=== PATIENT | female | born 1985 | race Caucasian/White ===

== ENCOUNTER → 2017-09-29 | Outpatient (CLI) | payer MEDICARE ==
[2017-09-29 15:30] VITALS: BP 107/68; PULSE 75; TEMP 98.1; BMI 44.7
--- NOTE | 2017-09-29 15:46 | P.HPBAR ---
Bariatric H&P - History & Physicial H&P Date: 09/29/17 History & Physicial: Visit/CC: inital clinic visit Patient initial contact: Initial weight: Initial weight in pounds: Height: 5 ft 3 in Initial BMI: Last weight: Current weight: 114.623 kg Current weight in pounds: 252.70 Current BMI: 44.7 [place] body weight (based on NIH guidelines): 52.163 kg Excess body weight loss: The patient is a 32 year-old F who presents for Bariatric Assessment. HPI: She has been trying to lose weight using low carb, Adipex, etc. Highest weight of 255 pounds. She is looking into the gastric bypass. She has been looking for the last 2 years. She reports emotional eating and overeating. No stomach cancer. Has family history of diabetes. She reports severe GERD. Her gallbladder is gone. Has low back pain and is on physical therapy. Occasional hip pain. She reports right knee pain. No ankle problems. No DVTs. PLAN: 1. MBSC reviewed 2. Need urine nicotine Past Medical History Past Medical History: Diabetes Mellitus, Hypertension History of Any Multi-Drug Resistant Organisms: None Reported Past Surgical History: Cholecystectomy Additional Past Surgical History / Comment(s): LEEP procedure 2011 Past Anesthesia/Blood Transfusion Reactions: No Reported Reaction Past Psychological History: Bipolar Smoking Status: Current every day smoker Past Alcohol Use History: None Reported Additional Past Alcohol Use History / Comment(s): patient smokes 1/2 pack per day Past Drug Use History: None Reported Surgical - Exam Vital Signs Temp Pulse BP 98.1 F 75 107/68 09/29/17 15:26 09/29/17 15:26 09/29/17 15:26 Bariatric Checklist Checklist: Plan: Checklist: EGD: 1. Hiatal hernia: 2. H. Pylori: HgbA1c: Vitamin D: Smoking: Current every day smoker Primary care physician referral: Psychiatry clearance: Cardiology clearance: Sleep study: Diet journal: VTE risk score: VTE risk level: Rehab needs at discharge:
[2017-09-29 16:51] LABS: HCT 38.6 % (34.0-46.0); MCH 29.8 pg (25.0-35.0); MCHC 33.8 g/dL (31.0-37.0); MCV 88.2 fL (80.0-100.0); Mean Platelet Volume 7.2; Platelet Count 300 k/uL (150-450); RBC 4.37 m/uL (3.80-5.40); RDW 12.7 % (11.5-15.5); WBC 10.6 k/uL (3.8-10.6)
[2017-09-29 17:00] LABS: Albumin 4.3 g/dL (3.5-5.0); Calcium 9.9 mg/dL (8.4-10.2); Potassium 4.6 mmol/L (3.5-5.1); Total Bilirubin 0.3 mg/dL (0.2-1.3); Total Protein 7.2 g/dL (6.3-8.2)
[2017-09-30 00:46] LABS: Iron Saturation 9.49 (12.00-45.00)
[2017-09-30 00:58] LABS: Vitamin D 25 Hydroxy 22.8 ng/mL (30.0-100.0)
[2017-09-30 01:02] LABS: Folate, Serum 21.9 ng/mL
[2017-09-30 02:10] LABS: Hemoglobin A1C 5.5 % (4.0-6.0)
== END | disposition home or self-care (01) ==
LOC: BARWHC3 14:57
PROVIDERS: ATTEND Surgery Plastic and Reconstructive Surgery
DX: E88.81 Metabolic syndrome and other insulin resistance (principal); E66.01 Morbid (severe) obesity due to excess calories; K21.9 Gastro-esophageal reflux disease without esophagitis; M25.561 Pain in right knee; F31.9 Bipolar disorder, unspecified; F17.210 Nicotine dependence, cigarettes, uncomplicated; E44.0 Moderate protein-calorie malnutrition; E55.9 Vitamin D deficiency, unspecified; I11.9 Hypertensive heart disease without heart failure; G47.30 Sleep apnea, unspecified; Z90.49 Acquired absence of other specified parts of digestive tract; Z68.41 Body mass index [BMI] 40.0-44.9, adult
CPT/HCPCS: 84425; 80061; 80053; 82607; 82728; 82746; 83540; 83550; 84443; 85027; 82306; 83036; 93005; 36415; G0463; 99211

== ENCOUNTER 2017-11-21 06:32 | Day surgery (SDC) | payer MEDICARE ==
[2017-11-17 10:51] VITALS: BMI 44.4
--- NOTE | 2017-11-21 05:53 | P.GSHP ---
History of Present Illness H&P Date: 11/21/17 CHIEF COMPLAINT: GERD HISTORY OF PRESENT ILLNESS: The patient is a 32-year-old female who presents reports gastroesophageal reflux disease. Upper endoscopy was offered for further evaluation and management. PAST MEDICAL HISTORY: Please see list. PAST SURGICAL HISTORY: Please see list. MEDICATIONS: Please see list. ALLERGIES: Please see list. SOCIAL HISTORY: No illicit drug use FAMILY HISTORY: No reports of Crohn disease or ulcerative colitis. REVIEW OF ORGAN SYSTEMS: CONSTITUTIONAL: No reports of fevers or chills. GI: Denies any blood in stools or constipation. PHYSICAL EXAM: VITAL SIGNS: Stable GENERAL: Well-developed and pleasant in no acute distress. HEENT: No scleral icterus. Extraocular movements grossly intact. Moist buccal mucosa. NECK: Supple without lymphadenopathy. CHEST: Unlabored respirations. Equal bilateral excursions. CARDIOVASCULAR: Regular rate and rhythm. Distal 2+ pulses. ABDOMEN: Soft, nondistended. MUSCULOSKELETAL: No clubbing, cyanosis, or edema. ASSESSMENT: 1. Gastroesophageal reflux disease PLAN: 1. Recommend proceeding with an upper endoscopy Past Medical History Past Medical History: Asthma, Diabetes Mellitus, GERD/Reflux, Hypertension Additional Past Medical History / Comment(s): HEARTBURN History of Any Multi-Drug Resistant Organisms: None Reported Past Surgical History: Cholecystectomy Additional Past Surgical History / Comment(s): LEEP procedure, Past Anesthesia/Blood Transfusion Reactions: No Reported Reaction Smoking Status: Current every day smoker - Past Family History Mother Family Medical History: No Reported History Medications and Allergies Home Medications Medication Instructions Recorded Confirmed Type DULoxetine HCL [Cymbalta] 30 mg PO DAILY 09/27/17 11/17/17 History Propranolol [Inderal] 20 mg PO TID 09/27/17 11/17/17 History clonazePAM [KlonoPIN] 0.25 mg PO BID 09/27/17 11/17/17 History lamoTRIgine [LaMICtal] 200 mg PO BID 09/27/17 11/17/17 History metFORMIN HCL [Glucophage] 500 mg PO BID 09/27/17 11/17/17 History Albuterol Inhaler [Ventolin Hfa 1 - 2 puff INHALATION RT-Q6H PRN 11/17/17 History Inhaler] Mirtazapine [Remeron] 15 mg PO HS 11/17/17 11/17/17 History Norethindrone [Ortho Micronor] 0.35 mg PO DAILY 11/17/17 11/17/17 History QUEtiapine [SEROquel] 50 mg PO BID 11/17/17 11/17/17 History Allergies Allergy/AdvReac Type Severity Reaction Status Date / Time Sulfa (Sulfonamide Allergy Rash/Hives Verified 11/17/17 10:19 Antibiotics)
[~2017-11-21 06:32] MED LIST: LACTATED RINGERS 1,000 ML IV SCH
[2017-11-21 07:05] VITALS: TEMP 97.9
[2017-11-21] MEDS ORDERED: LACTATED RINGERS 1,000 ML IV ONE (07:16)
[2017-11-21] MEDS ORDERED: LIDOCAINE 1% INJ 10MG/ML (20 ML MDV) ONE (07:42)
[2017-11-21] MEDS ORDERED: PROPOFOL 10 MG/ML 20 ML VIAL IV ONE (07:42)
--- NOTE | 2017-11-21 08:07 | P.PCN ---
Date of Procedure: 11/21/17 Description of Procedure: PREOPERATIVE DIAGNOSIS: Gastroesophageal reflux disease. Morbid obesity. POSTOPERATIVE DIAGNOSIS: Morbid obesity. Gastritis. Gastroesophageal reflux disease. Diaphragmatic hiatal hernia Erosive esophagitis OPERATION: Esophagogastroduodenoscopy with biopsies along antrum and distal esophagus SURGEON: Milka Barroso MD ANESTHESIA: MAC. INDICATIONS: The patient is a 32-year-old female who presents with a history of reflux disease. Benefits and risks of the procedure were described. Informed consent was obtained. DESCRIPTION: The patient was brought into the endoscopy suite and laid in the left lateral decubitus position. An Olympus gastroscope was passed along the posterior oropharynx down to the distal esophagus where the squamocolumnar junction was encountered at 35 cm from the incisors. The stomach was entered and no bile reflux was found. Additional findings are listed below. Biopsies with cold forceps were obtained of the antrum. The first through third portion of the duodenum was examined and unremarkable. Retroflexion of the scope confirmed Hill grade 4 lower esophageal valve. The squamocolumnar junction demonstrated LA grade C erosive esophagitis. The stomach was desufflated. The patient tolerated the procedure well. FINDINGS: Squamocolumnar junction 33 cm from the incisors. Diaphragmatic hiatus at 38 cm. Hiatal hernia, 5 cm Hill grade 4 lower esophageal valve. LA grade C erosive esophagitis. No active duodenitis. Chronic gastritis with recent bleed RECOMMENDATIONS: Upper endoscopy as needed. Plan - Discharge Summary New Discharge Prescriptions: No Action DULoxetine HCL [Cymbalta] 30 mg PO DAILY lamoTRIgine [LaMICtal] 200 mg PO BID metFORMIN HCL [Glucophage] 500 mg PO BID clonazePAM [KlonoPIN] 0.25 mg PO BID Propranolol [Inderal] 20 mg PO TID Mirtazapine [Remeron] 15 mg PO HS QUEtiapine [SEROquel] 50 mg PO BID Norethindrone [Ortho Micronor] 0.35 mg PO DAILY Albuterol Inhaler [Ventolin Hfa Inhaler] 1 - 2 puff INHALATION RT-Q6H PRN PRN Reason: Shortness Of Breath Discharge Medication List DULoxetine HCL [Cymbalta] 30 mg PO DAILY 09/27/17 [History] Propranolol [Inderal] 20 mg PO TID 09/27/17 [History] clonazePAM [KlonoPIN] 0.25 mg PO BID 09/27/17 [History] lamoTRIgine [LaMICtal] 200 mg PO BID 09/27/17 [History] metFORMIN HCL [Glucophage] 500 mg PO BID 09/27/17 [History] Albuterol Inhaler [Ventolin Hfa Inhaler] 1 - 2 puff INHALATION RT-Q6H PRN [History] Mirtazapine [Remeron] 15 mg PO HS 11/17/17 [History] Norethindrone [Ortho Micronor] 0.35 mg PO DAILY 11/17/17 [History] QUEtiapine [SEROquel] 50 mg PO BID 11/17/17 [History]
[2017-11-21 08:19] VITALS: BP 103/63; PULSE 65; RESP 16
[2017-11-21 08:48] LABS: Glucose,Whole Blood 101 mg/dL (75-99)
== END 2017-11-21 08:30 | disposition home or self-care (01) ==
LOC: ORWHC2ENDO 06:32
PROVIDERS: ATTEND Surgery Plastic and Reconstructive Surgery
DX: K29.50 Unspecified chronic gastritis without bleeding (principal); K22.10 Ulcer of esophagus without bleeding; K44.9 Diaphragmatic hernia without obstruction or gangrene; E11.9 Type 2 diabetes mellitus without complications; Z79.84 Long term (current) use of oral hypoglycemic drugs; J45.909 Unspecified asthma, uncomplicated; F17.200 Nicotine dependence, unspecified, uncomplicated; Z79.3 Long term (current) use of hormonal contraceptives; Z79.899 Other long term (current) drug therapy; Z88.2 Allergy status to sulfonamides; E66.01 Morbid (severe) obesity due to excess calories; Z68.41 Body mass index [BMI] 40.0-44.9, adult
CPT/HCPCS: 81025; 88305; 43239; J2001; J2704

== ENCOUNTER → 2018-02-01 | Outpatient (CLI) | payer MEDICARE ==
[2018-02-01 15:14] VITALS: BP 139/74; PULSE 98; RESP 16; TEMP 97.6; BMI 44.6
--- NOTE | 2018-02-01 15:14 | P.PN ---
Subjective Progress Note Date: 02/01/18 HPI: She has very bad acid reflux. She is looking into the gastric bypass. She has reponded well to Omeprazole. She is removing extra sugar from her diet. PLAN: 1. New Omeprazole prescription 2. Education between sleeve and gastric bypass reviewed. 3. Went over consent for gastric bypass. 4. Hiatal hernia surgery on hold as she elected for gastric bypass. 5. All labs reviewed as well.
== END | disposition home or self-care (01) ==
LOC: BARWHC3 13:33
PROVIDERS: ATTEND Surgery Plastic and Reconstructive Surgery
DX: K21.9 Gastro-esophageal reflux disease without esophagitis (principal)
CPT/HCPCS: 99211

== ENCOUNTER → 2018-02-06 | Outpatient (CLI) | payer MEDICARE ==
[2018-02-06 13:46] VITALS: BMI 44.1
== END | disposition home or self-care (01) ==
LOC: BARWHC3 08:35
PROVIDERS: ATTEND Surgery Plastic and Reconstructive Surgery
DX: E66.01 Morbid (severe) obesity due to excess calories (principal); Z68.41 Body mass index [BMI] 40.0-44.9, adult
CPT/HCPCS: 97804

== ENCOUNTER → 2018-03-08 | Outpatient (CLI) | payer MEDICARE ==
[2018-03-08 15:35] VITALS: BP 115/76; PULSE 71; TEMP 97.1; BMI 43.7
--- NOTE | 2018-03-08 16:22 | P.PN ---
Subjective Progress Note Date: 03/08/18 DATE OF SERVICE: 03/08/2018 CHIEF COMPLAINT: Bariatric evaluation. HISTORY OF PRESENT ILLNESS: Michelle Bentley is a 32-year-old female who comes in with sleep apnea, hypertensive heart disease, and diabetes as a result of her morbid obesity. She completed her medical supervised weight loss. She comes in with lifelong morbid obesity. She is looking into the gastric bypass. She has tried premier protein drink and reports fatigue of her protein drink. At height of 5 feet 3 inches, her ideal body weight is 140 pounds. She comes in 246 pounds from 252 pounds, 1 month ago. Her body mass index is reduced from 44.7 to 43.8. She lost 5 pounds from 1 month ago. She is 106 pounds overweight. PAST MEDICAL HISTORY: 1. Morbid obesity due to excess calories 2. Body mass index of 45.3 initial 3. Osteoarthritis of the knees. 4. Osteoarthritis of the hips. 5. Osteoarthritis of the lower back. 6. Obstructive sleep apnea. 7. Hypertensive heart disease. 8. Gastroesophageal reflux disease. 9. Diabetes type 2, [id number] 10. Seizure disorder 11. Depressive disorder 12. Asthma 13. Bipolar disorder PAST SURGICAL HISTORY: 1. Cholecystectomy 2. LEEP HOME MEDICATIONS: 1. Metformin 2. Cymbalta 3. Seroquel 4. Omeprazole 5. control pill 6. Remeron 7. Albuterol inhaler 8. Klonopin 9. Inderal 10. Lamictal ALLERGIES: Sulfa SOCIAL HISTORY: Tobacco use. FAMILY HISTORY: No family history of ulcerative colitis disease or Crohn's disease. Family history of morbid obesity. No lupus in the family. No reports of stomach or esophageal cancer. Family history of diabetes type 2. REVIEW OF ORGAN SYSTEMS: CONSTITUTIONAL: At height of 5 feet 3 inches, her ideal body weight is 140 pounds. She comes in 252 pounds. Her body mass index is 44.7. HEENT: Denies any active troubles with vision or hearing. No troubles with swallowing. ENDOCRINE: No diabetes. No hypothyroidism. CARDIOVASCULAR: No reports of palpitations or heart attacks or chest pain. RESPIRATORY: Has daytime somnolence. Has asthma. GI: Denies any bright red blood per rectum. MUSCULOSKELETAL: Has lower back pain and joint pain. Has osteoarthritis of the knees. NEURO: No headaches. No seizure disorders. PSYCH: Has depression and suicidal ideation. Has bipolar disorder. RHEUMATOLOGIC: No lupus. No rheumatoid arthritis. HEMATOLOGIC: Denies any abnormal bleeding or bruising. No personal history of DVTs. SKIN: No rash. No skin cancer. PHYSICAL EXAM: VITAL SIGNS: Height 5 foot 3 inches, weight 246 pounds. BMI 43.8 Vital Signs Temp 97.1 F L 03/08/18 15:23 Pulse 71 03/08/18 15:23 Resp BP 115/76 03/08/18 15:23 Pulse Ox GENERAL: Well-developed in no acute distress. HEENT: No scleral icterus. Extraocular movements grossly intact. Hears conversational speech. No nasal drainage. NECK: Supple without lymphadenopathy. CHEST: Nonlabored respirations with equal bilateral excursions. CARDIOVASCULAR: Regular rate and regular rhythm. Distal 2+ pulses. ABDOMEN: Obese, soft, nondistended. MUSCULOSKELETAL: No clubbing, cyanosis or edema. Gross strength 5/5 distal lower extremities. NEURO: No focal or lateralizing signs. Cranial nerves 2 through 12 grossly within normal limits. PSYCH: Appropriate affect. Alert and oriented to person, place and time. SKIN: Good skin turgor. Well perfused. ASSESSMENT: 1. Morbid obesity. 2. Body mass index of 44.7 initial to 43.8 3. Osteoarthritis of the knees. 4. Osteoarthritis of the hips. 5. Osteoarthritis of the lower back. 6. Obstructive sleep apnea. 7. Hypertensive heart disease. 8. Gastroesophageal reflux disease. 9. Diabetes type 2, [id number] 10. Seizure disorder 11. Depressive disorder 12. Asthma 13. Bipolar disorder 14. Vitamin D deficiency 15. Iron deficiency anemia 16. Hypertriglyceridemia 17. Hypercholesterolemia 18. Hiatal hernia PLAN: 1. Bariatric options between a sleeve, band and a Chela-en-Y gastric bypass were reviewed in detail. The patient elected for a gastric bypass. Robotic assisted approach described. 2. The [place] [facility] Data was also reviewed with benefits and risks as described. 3. An 8 page second-generation bariatric consent form was reviewed in detail including potential of bleeding, infection, leaks, adequate weight loss, nutritional deficiencies which the patient demonstrated understanding of the risks. 4. A 2 week high-protein low caloric 800 kcal diet described to address hepatomegaly. 5. Preoperative labs including complete metabolic panel and CBC with type and screen recommended. 6. DVT prophylaxis per [place] [facility]. 7. Antibiotic prophylaxis. 8. Inpatient hospitalization anticipated for more than 2 nights. 9. All questions and concerns were addressed with the patient. 10. She has mood disorder and medication adjustment postprocedure was addressed. She reports that her mental health specialist did not want to adjust her medications. May need in-patient psychology assessment for any issues. 11. She is intermediate risk for madeline-operative complications due to her multiple co-morbidities. Objective - Vital Signs Vital signs: Vital Signs Temp 97.1 F L 03/08/18 15:23 Pulse 71 03/08/18 15:23 Resp BP 115/76 03/08/18 15:23 Pulse Ox Intake & Output 03/07/18 03/08/18 03/08/18 18:59 06:59 18:59 Weight 112.037 kg - Labs CBC & Chem 7: 03/08/18 17:03 03/08/18 17:03
== END | disposition home or self-care (01) ==
LOC: BARWHC3 14:44
PROVIDERS: ATTEND Surgery Plastic and Reconstructive Surgery
DX: E66.01 Morbid (severe) obesity due to excess calories (principal); M17.0 Bilateral primary osteoarthritis of knee; M16.0 Bilateral primary osteoarthritis of hip; M47.816 Spondylosis without myelopathy or radiculopathy, lumbar region; G47.33 Obstructive sleep apnea (adult) (pediatric); I11.9 Hypertensive heart disease without heart failure; K21.9 Gastro-esophageal reflux disease without esophagitis; E11.9 Type 2 diabetes mellitus without complications; G40.909 Epilepsy, unspecified, not intractable, without status epilepticus; J45.909 Unspecified asthma, uncomplicated; F31.9 Bipolar disorder, unspecified; E55.9 Vitamin D deficiency, unspecified; D50.9 Iron deficiency anemia, unspecified; E78.1 Pure hyperglyceridemia; E78.00 Pure hypercholesterolemia, unspecified; K44.9 Diaphragmatic hernia without obstruction or gangrene; Z68.41 Body mass index [BMI] 40.0-44.9, adult; Z72.0 Tobacco use; Z90.49 Acquired absence of other specified parts of digestive tract; Z79.84 Long term (current) use of oral hypoglycemic drugs; Z79.899 Other long term (current) drug therapy; Z88.2 Allergy status to sulfonamides
CPT/HCPCS: 36415; 80053; 85025; 86850; 86900; 86901; 93005; 99211

== ENCOUNTER → 2018-03-08 | Outpatient (CLI) | payer MEDICARE ==
[~2018-03-08] MED LIST changes: +ACETAMINOPHEN IV (For NPO) 1,000 MG in EMPTY BAG 1 BAG IVPB ONE; +CHLORHEXIDINE GLUCONATE 15 ML CUP MUCOUS MEM ONE; +ENOXAPARIN 40 MG/0.4 ML SYRINGE SQ STA; -LACTATED RINGERS 1,000 ML IV SCH; +PANTOPRAZOLE 40 MG/10 ML VIAL IV STA; +SCOPOLAMINE 1.5MG/72HR PATCH TRANSDERM STA
--- NOTE | 2018-03-13 07:00 | P.GSHP ---
History of Present Illness H&P Date: 03/13/18 DATE OF SERVICE: 03/13/2018 REASON FOR CONSULTATION: Morbid obesity HISTORY OF PRESENT ILLNESS: Michelle Bentley is a 32-year-old female who comes in with long-standing morbid obesity. She has been trying to lose weight using low carb, Adipex, etc. Her highest weight is 255 pounds. She is looking into the gastric bypass. She has been looking for the last 2 years. She reports emotional eating and overeating. No reports of stomach cancer. She has family history of diabetes. She reports severe gastroesophageal reflux disease. Her gallbladder is gone. She has low back pain and is on physical therapy. She reports occasional hip pain. She reports right knee pain. No ankle problems. No reports of DVTs. PAST MEDICAL HISTORY: 1. Morbid obesity. 2. Body mass index of 45.3 initial 3. Osteoarthritis of the knees. 4. Osteoarthritis of the hips. 5. Osteoarthritis of the lower back. 6. Obstructive sleep apnea. 7. Hypertensive heart disease. 8. Gastroesophageal reflux disease. 9. Diabetes type 2, [id number] 10. Seizure disorder 11. Depressive disorder 12. Asthma 13. Bipolar disorder PAST SURGICAL HISTORY: 1. Cholecystectomy 2. LEEP HOME MEDICATIONS: 1. Metformin 2. Cymbalta 3. Seroquel 4. Omeprazole 5. control pill 6. Remeron 7. Albuterol inhaler 8. Klonopin 9. Inderal 10. Lamictal ALLERGIES: Sulfa SOCIAL HISTORY: Tobacco use. FAMILY HISTORY: No family history of ulcerative colitis disease or Crohn's disease. Family history of morbid obesity. No lupus in the family. No reports of stomach or esophageal cancer. Family history of diabetes type 2. REVIEW OF ORGAN SYSTEMS: CONSTITUTIONAL: At height of 5 feet 3 inches, her ideal body weight is 140 pounds. She comes in 252 pounds. Her body mass index is 44.8. She is 112 pounds overweight. HEENT: Denies any active troubles with vision or hearing. No troubles with swallowing. ENDOCRINE: No diabetes. No hypothyroidism. CARDIOVASCULAR: No reports of palpitations or heart attacks or chest pain. RESPIRATORY: Has daytime somnolence. No asthma. GI: Denies any bright red blood per rectum. MUSCULOSKELETAL: Has lower back pain and joint pain. Has osteoarthritis of the knees. NEURO: No headaches. No seizure disorders. PSYCH: No depression or suicidal ideation. RHEUMATOLOGIC: No lupus. No rheumatoid arthritis. HEMATOLOGIC: Denies any abnormal bleeding or bruising. No personal history of DVTs. SKIN: No rash. No skin cancer. PHYSICAL EXAM: VITAL SIGNS: Height 5 foot 3 inches, weight 252 pounds. BMI 44.8 GENERAL: Well-developed in no acute distress. HEENT: No scleral icterus. Extraocular movements grossly intact. Hears conversational speech. No nasal drainage. NECK: Supple without lymphadenopathy. CHEST: Nonlabored respirations with equal bilateral excursions. CARDIOVASCULAR: Regular rate and regular rhythm. Distal 2+ pulses. ABDOMEN: Obese, soft, nondistended. MUSCULOSKELETAL: No clubbing, cyanosis or edema. Gross strength 5/5 distal lower extremities. NEURO: No focal or lateralizing signs. Cranial nerves 2 through 12 grossly within normal limits. PSYCH: Appropriate affect. Alert and oriented to person, place and time. SKIN: Good skin turgor. Well perfused. ASSESSMENT: 1. Morbid obesity. 2. Body mass index of 45.3 initial 3. Osteoarthritis of the knees. 4. Osteoarthritis of the hips. 5. Osteoarthritis of the lower back. 6. Obstructive sleep apnea. 7. Hypertensive heart disease. 8. Gastroesophageal reflux disease. 9. Diabetes type 2, [id number] 10. Seizure disorder 11. Depressive disorder 12. Asthma 13. Bipolar disorder 14. Vitamin D deficiency 15. Iron deficiency anemia 16. Hypertriglyceridemia 17. Hypercholesterolemia PLAN: 1. Surgical options including a band, gastric bypass, sleeve gastrectomy were described in detail. Alternatives such as gastric balloon including duodenal switch were described. She is looking into the gastric bypass. 2. The [place] [facility] Data was also reviewed with benefits and risks as described. 3. An 8 page second-generation bariatric consent form was reviewed in detail including potential of bleeding, infection, leaks, adequate weight loss, nutritional deficiencies which he demonstrated understanding of the risks. 4. A 2 week high-protein low caloric 800 kcal diet described to address hepatomegaly. 5. Preoperative labs including complete metabolic panel and CBC with type and screen recommended. 6. DVT prophylaxis per [place] [facility]. 7. Antibiotic prophylaxis. 8. Inpatient hospitalization anticipated for more than 2 nights. 9. All questions and concerns were addressed with the patient. 19. Recommended dietary classes. Past Medical History Past Medical History: Asthma, Diabetes Mellitus, GERD/Reflux, Hypertension Additional Past Medical History / Comment(s): HEARTBURN History of Any Multi-Drug Resistant Organisms: None Reported Past Surgical History: Cholecystectomy Additional Past Surgical History / Comment(s): LEEP procedure, EGD Past Anesthesia/Blood Transfusion Reactions: No Reported Reaction Past Psychological History: Bipolar Smoking Status: Former smoker Past Alcohol Use History: None Reported Additional Past Alcohol Use History / Comment(s): STARTED SMOKING AT AGE 13 QUIT ON AND OFF, SMOKED 1/2PPD, quit 02-13-18 Past Drug Use History: Marijuana Additional Drug Use History / Comment(s): occasional use - Past Family History Mother Family Medical History: No Reported History Medications and Allergies Home Medications Medication Instructions Recorded Confirmed Type Propranolol [Inderal] 20 mg PO TID 09/27/17 03/08/18 History clonazePAM [KlonoPIN] 0.25 mg PO BID 09/27/17 03/08/18 History lamoTRIgine [LaMICtal] 200 mg PO BID 09/27/17 03/08/18 History metFORMIN HCL [Glucophage] 500 mg PO BID 09/27/17 03/08/18 History Albuterol Inhaler [Ventolin Hfa 1 - 2 puff INHALATION RT-Q6H PRN 11/17/17 History Inhaler] Mirtazapine [Remeron] 15 mg PO HS 11/17/17 03/08/18 History Norethindrone [Ortho Micronor] 0.35 mg PO DAILY 11/17/17 03/08/18 History QUEtiapine [SEROquel] 50 mg PO BID 11/17/17 03/08/18 History Omeprazole 40 mg PO DAILY #30 capsule. 11/21/17 03/08/18 Rx buPROPion HCL [Wellbutrin XL] 300 mg PO DAILY 02/02/18 03/08/18 History Allergies Allergy/AdvReac Type Severity Reaction Status Date / Time Sulfa (Sulfonamide Allergy Rash/Hives Verified 03/09/18 08:25 Antibiotics)
== END ==
LOC: LABPAT 16:37
PROVIDERS: ATTEND Surgery Plastic and Reconstructive Surgery
DX: Z01.818 Encounter for other preprocedural examination (principal); Z01.812 Encounter for preprocedural laboratory examination
CPT/HCPCS: 36415; 80053; 85025; 86850; 86900; 86901; 93005

== ENCOUNTER 2018-03-13 07:30 | Inpatient (IN) | payer MEDICARE ==
[2018-03-08 18:22] LABS: Basophils % (A) 0 %; Eosinophils # (A) 0.1 k/uL (0-0.7); Eosinophils % (A) 1 %; HCT 40.5 % (34.0-46.0); HGB 13.4 gm/dL (11.4-16.0); Lymphocytes # (A) 2.1 k/uL (1.0-4.8); Lymphocytes % (A) 21 %; MCH 29.8 pg (25.0-35.0); MCHC 33.1 g/dL (31.0-37.0); Mean Platelet Volume 7.4; Monocytes # (A) 0.5 k/uL (0-1.0); Monocytes % (A) 5 %; Neutrophils # (A) 7.3 k/uL (1.3-7.7); Neutrophils % (A) 72 %; Platelet Count 319 k/uL (150-450); RDW 13.3 % (11.5-15.5); WBC 10.2 k/uL (3.8-10.6)
[2018-03-09 04:18] LABS: Albumin 4.5 g/dL (3.80-4.90); Albumin/Globulin Ratio 2.14 (1.20-2.10); Anion Gap 7.3 mmol/L (4.00-12.00); Calcium 9.8 mg/dL (8.7-10.3); Carbon Dioxide 26.7 mmol/L (21.6-31.8); Globulin 2.1 g/dL (1.6-3.3); Potassium 4.5 mmol/L (3.5-5.5); Total Bilirubin 0.2 mg/dL (0.3-1.2); Total Protein 6.6 g/dL (6.2-8.2)
--- NOTE | 2018-03-13 07:03 | P.GSHP ---
History of Present Illness H&P Date: 03/13/18 DATE OF SERVICE: 03/13/2018 REASON FOR CONSULTATION: Morbid obesity HISTORY OF PRESENT ILLNESS: Michelle Bentley is a 32-year-old female who comes in with long-standing morbid obesity. She has been trying to lose weight using low carb, Adipex, etc. Her highest weight is 255 pounds. She is looking into the gastric bypass. She has been looking for the last 2 years. She reports emotional eating and overeating. No reports of stomach cancer. She has family history of diabetes. She reports severe gastroesophageal reflux disease. Her gallbladder is gone. She has low back pain and is on physical therapy. She reports occasional hip pain. She reports right knee pain. No ankle problems. No reports of DVTs. PAST MEDICAL HISTORY: 1. Morbid obesity. 2. Body mass index of 45.3 initial 3. Osteoarthritis of the knees. 4. Osteoarthritis of the hips. 5. Osteoarthritis of the lower back. 6. Obstructive sleep apnea. 7. Hypertensive heart disease. 8. Gastroesophageal reflux disease. 9. Diabetes type 2, [id number] 10. Seizure disorder 11. Depressive disorder 12. Asthma 13. Bipolar disorder PAST SURGICAL HISTORY: 1. Cholecystectomy 2. LEEP HOME MEDICATIONS: 1. Metformin 2. Cymbalta 3. Seroquel 4. Omeprazole 5. control pill 6. Remeron 7. Albuterol inhaler 8. Klonopin 9. Inderal 10. Lamictal ALLERGIES: Sulfa SOCIAL HISTORY: Tobacco use. FAMILY HISTORY: No family history of ulcerative colitis disease or Crohn's disease. Family history of morbid obesity. No lupus in the family. No reports of stomach or esophageal cancer. Family history of diabetes type 2. REVIEW OF ORGAN SYSTEMS: CONSTITUTIONAL: At height of 5 feet 3 inches, her ideal body weight is 140 pounds. She comes in 252 pounds. Her body mass index is 44.8. She is 112 pounds overweight. HEENT: Denies any active troubles with vision or hearing. No troubles with swallowing. ENDOCRINE: No diabetes. No hypothyroidism. CARDIOVASCULAR: No reports of palpitations or heart attacks or chest pain. RESPIRATORY: Has daytime somnolence. No asthma. GI: Denies any bright red blood per rectum. MUSCULOSKELETAL: Has lower back pain and joint pain. Has osteoarthritis of the knees. NEURO: No headaches. No seizure disorders. PSYCH: No depression or suicidal ideation. RHEUMATOLOGIC: No lupus. No rheumatoid arthritis. HEMATOLOGIC: Denies any abnormal bleeding or bruising. No personal history of DVTs. SKIN: No rash. No skin cancer. PHYSICAL EXAM: VITAL SIGNS: Height 5 foot 3 inches, weight 252 pounds. BMI 44.8 GENERAL: Well-developed in no acute distress. HEENT: No scleral icterus. Extraocular movements grossly intact. Hears conversational speech. No nasal drainage. NECK: Supple without lymphadenopathy. CHEST: Nonlabored respirations with equal bilateral excursions. CARDIOVASCULAR: Regular rate and regular rhythm. Distal 2+ pulses. ABDOMEN: Obese, soft, nondistended. MUSCULOSKELETAL: No clubbing, cyanosis or edema. Gross strength 5/5 distal lower extremities. NEURO: No focal or lateralizing signs. Cranial nerves 2 through 12 grossly within normal limits. PSYCH: Appropriate affect. Alert and oriented to person, place and time. SKIN: Good skin turgor. Well perfused. ASSESSMENT: 1. Morbid obesity. 2. Body mass index of 45.3 initial 3. Osteoarthritis of the knees. 4. Osteoarthritis of the hips. 5. Osteoarthritis of the lower back. 6. Obstructive sleep apnea. 7. Hypertensive heart disease. 8. Gastroesophageal reflux disease. 9. Diabetes type 2, [id number]-hqjbyfkoy 10. Seizure disorder 11. Depressive disorder 12. Asthma 13. Bipolar disorder 14. Vitamin D deficiency 15. Iron deficiency anemia 16. Hypertriglyceridemia 17. Hypercholesterolemia PLAN: 1. Surgical options including a band, gastric bypass, sleeve gastrectomy were described in detail. Alternatives such as gastric balloon including duodenal switch were described. She is looking into the gastric bypass. 2. The [place] [facility] Data was also reviewed with benefits and risks as described. 3. An 8 page second-generation bariatric consent form was reviewed in detail including potential of bleeding, infection, leaks, adequate weight loss, nutritional deficiencies which he demonstrated understanding of the risks. 4. A 2 week high-protein low caloric 800 kcal diet described to address hepatomegaly. 5. Preoperative labs including complete metabolic panel and CBC with type and screen recommended. 6. DVT prophylaxis per [place] [facility]. 7. Antibiotic prophylaxis. 8. Inpatient hospitalization anticipated for more than 2 nights. 9. All questions and concerns were addressed with the patient. 19. Recommended dietary classes. Past Medical History Past Medical History: Asthma, Diabetes Mellitus, GERD/Reflux, Hypertension Additional Past Medical History / Comment(s): HEARTBURN History of Any Multi-Drug Resistant Organisms: None Reported Past Surgical History: Cholecystectomy Additional Past Surgical History / Comment(s): LEEP procedure, EGD Past Anesthesia/Blood Transfusion Reactions: No Reported Reaction Smoking Status: Former smoker - Past Family History Mother Family Medical History: No Reported History Medications and Allergies Home Medications Medication Instructions Recorded Confirmed Type RX: Propranolol [Inderal] 20 mg PO TID 09/27/17 03/08/18 History RX: metFORMIN HCL [Glucophage] 500 mg PO BID 09/27/17 03/08/18 History clonazePAM [KlonoPIN] 0.25 mg PO BID 09/27/17 03/08/18 History lamoTRIgine [LaMICtal] 200 mg PO BID 09/27/17 03/08/18 History Albuterol Inhaler [Ventolin Hfa 1 - 2 puff INHALATION RT-Q6H PRN 11/17/17 History Inhaler] Mirtazapine [Remeron] 15 mg PO HS 11/17/17 03/08/18 History Norethindrone [Ortho Micronor] 0.35 mg PO DAILY 11/17/17 03/08/18 History QUEtiapine [SEROquel] 50 mg PO BID 11/17/17 03/08/18 History RX: Omeprazole 40 mg PO DAILY #30 capsule. 11/21/17 03/08/18 Rx buPROPion HCL [Wellbutrin XL] 300 mg PO DAILY 02/02/18 03/08/18 History Allergies Allergy/AdvReac Type Severity Reaction Status Date / Time Sulfa (Sulfonamide Allergy Rash/Hives Verified 03/09/18 08:25 Antibiotics) Results - Labs 03/08/18 17:03 03/08/18 17:03
[~2018-03-13 07:30] MED LIST changes: +DEXAMETHASONE SOD PHOSPHATE 10 MG/ML 1 ML VIAL IV ONE; +MIDAZOLAM (PF) 2 MG/2 ML VIAL IV PRN; +ONDANSETRON 4 MG/2 ML VIAL IVP ONE; +SCOPOLAMINE 1.5MG/72HR PATCH TRANSDERM ONE; +ceFAZolin IN SWFI 2 GM/20 ML SYRINGE IVP ONE
[2018-03-13] MEDS ORDERED: LACTATED RINGERS 1,000 ML IV ONE ×2 (08:39→13:46)
[2018-03-13 08:47] LABS: Glucose,Whole Blood 92 mg/dL (75-99)
[2018-03-13] MEDS ORDERED: LIDOCAINE 1% 20 ML VIAL (10MG/ML) FOR IV START INTRADERMA ONE (08:57)
[2018-03-13] MEDS ORDERED: fentaNYL (PF) 50 MCG/ML 2 ML AMP ONE (11:37)
[2018-03-13] MEDS ORDERED: PROPOFOL 10 MG/ML 20 ML VIAL IV ONE (11:37)
[2018-03-13] MEDS ORDERED: MIDAZOLAM 2 MG/2 ML VIAL ONE (11:37)
[2018-03-13] MEDS ORDERED: NEOSTIGMINE 1 MG/ML 10 ML VIAL ONE (11:37)
[2018-03-13] MEDS ORDERED: LIDOCAINE 1% INJ 10MG/ML (20 ML MDV) ONE (11:37)
[2018-03-13] MEDS ORDERED: GLYCOPYRROLATE 0.2 MG/ML 2 ML VIAL ONE (11:37)
[2018-03-13] MEDS ORDERED: SUCCINYLCHOLINE CHLORIDE 100 MG/5 ML SYR IV ONE (11:37)
[2018-03-13] MEDS ORDERED: ROCURONIUM BROMIDE 10 MG/ML 10 ML VIAL IV ONE (11:37)
[2018-03-13] MEDS ORDERED: IV FLUID CONTINUATION 800 ML IV ONE (11:41)
[2018-03-13] MEDS ORDERED: BUPIVACAIN-EPI 0.25%-1:200,000 30 ML VIAL SQ ONE ×2 (12:06→12:15)
[2018-03-13] MEDS ORDERED: HYDROmorphone 0.5 MG/0.5 ML SYRINGE IVP PRN (14:25)
[2018-03-13] MEDS ORDERED: NALOXONE 0.4 MG/ML 1 ML VIAL IV PRN (14:25)
--- NOTE | 2018-03-13 14:43 | P.OP ---
Date of Procedure: 03/13/18 Description of Procedure: SURGEON: HARRIS GIRON MD PREOPERATIVE DIAGNOSES: 1. Morbid obesity. 2. Body mass index of 45.3 initial 3. Osteoarthritis of the knees. 4. Osteoarthritis of the hips. 5. Osteoarthritis of the lower back. 6. Obstructive sleep apnea. 7. Hypertensive heart disease. 8. Gastroesophageal reflux disease. 9. Diabetes type 2, [id number]-[id number] 10. Seizure disorder 11. Depressive disorder 12. Asthma 13. Bipolar disorder 14. Vitamin D deficiency 15. Iron deficiency anemia 16. Hypertriglyceridemia 17. Hypercholesterolemia POSTOPERATIVE DIAGNOSES: 1. Morbid obesity. 2. Body mass index of 45.3 initial 3. Osteoarthritis of the knees. 4. Osteoarthritis of the hips. 5. Osteoarthritis of the lower back. 6. Obstructive sleep apnea. 7. Hypertensive heart disease. 8. Gastroesophageal reflux disease. 9. Diabetes type 2, [id number]-epwlrdnsa 10. Seizure disorder 11. Depressive disorder 12. Asthma 13. Bipolar disorder 14. Vitamin D deficiency 15. Iron deficiency anemia 16. Hypertriglyceridemia 17. Hypercholesterolemia OPERATION: 1. Robotic assisted da Ginger Xi laparoscopic Finesse-en-Y gastric bypass, 100 cm antecolic antegastric Finesse limb, with 25 mm EEA. 2. Intraoperative esophagogastrojejunoscopy. ANESTHESIA: GETA and local ESTIMATED BLOOD LOSS: 10 mL SPECIMENS REMOVED: None. COMPLICATIONS: NONE. INDICATIONS: Michelle Bentley is a 32-year-old female who comes in with long- standing morbid obesity. She has been trying to lose weight using low carb, Adipex, etc. Her highest weight is 255 pounds. She is looking into the gastric bypass. At height of 5 feet 3 inches, her ideal body weight is 140 pounds. Her body mass index was 45.1. Today she comes in 240 pounds. A second- generation bariatric consent form was described in detail including the possibility of protein malnutrition, leaks, gastrojejunal stricture, venous thrombosis, need for further surgery for which she demonstrated understanding. Benefits and risks of the procedure were described at length. Informed consent was obtained. DESCRIPTION: The patient was brought into the operating room theater. She was placed supine. She had received Lovenox subcutaneously for DVT prophylaxis. Additionally she Peridex oral solution as an oral decontaminant was placed per anesthesia. After general induction, the abdomen was prepped and draped in standard sterile fashion. Ioban draping was placed along the abdomen. A robotic da Ginger Xi system was prepped and primed. The xiphoid to umbilicus was measured of 16 cm. Incisions were proposed at 15 cm from the xiphoid. Proposed port sites were marked with indelible marker along the anterior axillary line bilaterally, mid clavicular line bilaterally with each port marked 10 cm from each other. The robotic stapler port was marked for the right midclavicular line including along the left midclavicular line. A 5 mm 0 degrees laparoscopic trocar entry was performed along the left upper quadrant. The abdomen was insufflated to 15 mmHg pressure, which she tolerated well. Diagnostic laparoscopy demonstrated no injury to bowel, viscera, or mesentery. The liver was smooth and unremarkable. An 8 mm camera port was placed left lateral to the umbilicus at the epigastrium , 15 cm distal to the xiphoid. Next, 12-mm robot stapler port was placed along the right mid abdomen. An 12 mm port was exchanged along the left upper quadrant. An 8 mm port was placed on the left lateral abdominal wall under direct visualization Please note that the ports were placed 18 to 20 cm away from the target anatomy of the stomach. Care was taken to check that each robotic arm was safely away from collision with the bed or the patient. At the epigastrium, a medium sized Amie liver retractor was placed under direct visualization with the [employer] Service Technician placed under the right shoulder of the patient. The patient was repositioned in reverse Trendelenburg position at 14-degrees after lowering the bed. The robot was docked over the patient. Using grasper for arm 3, a grasper for arm 1, including vessel sealer for arm 4 , the robotic system was docked and primed as described. Instruments were interchanged by the medical office receptionist assistant including endoscissors, the needle route relief driver, and stapler. I had sat at the console. Next, the transverse mesocolon was reflected into the upper abdomen after dividing the mesentery and preparing for the jejunojejunostomy portion of the case. The ligament of Treitz was identified and measured 60 cm antegrade and marked using 3-0 Silk. The jejunum was divided at the 60 cm point using 45-mm white loads above the suture measurement. The biliopancreatic limb was held in place. The Finesse limb was measured 100 cm in an antegrade fashion to avoid tension along the proposed gastrojejunal anastomosis. At 100 cm along the anti-mesenteric border of the Finesse limb, a jejunojejunostomy was proposed whereby enterotomies were created along the biliopancreatic limb including the Finesse limb using a Bovie cautery. A stay suture of 3-0 Slik was placed to align and create the anastomosis. The enterotomies along the anti-mesenteric borders were created followed by unidirectional fire from the patient's right side using 2 - 45 mm white load Smart technology robotic stapler. The jejunojejunostomy was found to be hemostatic. The enterotomy was closed after horizontal mattress stitch of 3-0 silk used to elevate the enterotomy followed by closure with the robotic stapler blue load. The jejunal limb was temporarily tacked along the left upper quadrant. Attention was now brought to the creation of the gastrojejunostomy. Along the lesser curvature of the stomach between the second and third veins, dissection was made along the retrogastric space to allow first firing of the robotic staple. Blue loads of 45 mm staplers were used to divide the stomach to create the gastric pouch. The patient was then prepared for placement of a Orvil. The patient was Mallampati 1. A 25-mm Orvil was selected for placement by the nurse tub tender. The Orvil tubing was placed anterior to the staple line of the gastric pouch and brought out through the left inferior lateral port. I re-scrubbed into the case. The robotic arms were temporarily undocked. The Orvil was then carefully and successfully navigated with the help of the nurse tub tender into the gastric pouch. The sutures were identified and divided. The tubing was from the 25 mm anvil. As the Orvil had been placed, the blind jejunal limb was brought proximally into the upper abdomen. No torsion was found upon the Finesse limb. No tension was identified as the limb was brought along the upper abdomen. The blind jejunal limb was previously opened using endo -scissors with cautery. The 25-mm EEA stapler was brought through the left anterior lateral port site from the left side. The EEA stapler was brought through the open jejunal limb and its needle was deployed at the antimesenteric border where the anvil were mated for approximately 1 minute upon firing. The stapler was removed after irrigating the shaft of the instrument with warm normal saline. Donuts were found to be intact and on both sides. The da Ginger Xi robot arms were then re-docked. I sat at the console. The open jejunal limb defect was closed using 45 mm white loads after releasing any tension from the blind jejunal limb. Care was taken to avoid any long blind limb to avoid candycane syndrome. Reinforcement sutures were placed along the gastrojejunal anastomosis and placed along the 9:00 and 3 o'clock position using 3-0 Vicryl. The Neil and jejunojejunostomy mesenteric defects were obliterated by her intra-abdominal fat. I then went to the head of the bed to perform the esophagogastrojejunoscopy and a leak test. An Olympus gastroscope was passed along the posterior oropharynx which was unremarkable for any injury to the vocal cords. The scope was passed down to the proximal portion of the pouch, whereby no active bleeding was encountered. Excellent visualization of the gastrojejunostomy anastomosis, including the Finesse limb was encountered with endoscopic image obtained. The anastomosis was found to be patent. The gastrointestinal tract was desufflated. No evidence of intraoperative leak was encountered as the gastric pouch and anastomosis were submerged under normal saline solution. The robot was then undocked. I then went back to the bedside of the patient, whereby with coordinated effort of the medical office receptionist assistant, irrigation was aspirated from the upper abdominal cavity. Tisseel was placed circumferentially over the anastomosis of the gastrojejunostomy. The fascial defect of the EEA stapler was closed using Alex Tapia and 0 Vicryl. All instruments and pneumoperitoneum were evacuated from the abdominal cavity. The port correlating with the EEA stapler device was cleansed with normal saline solution and hydrogen peroxide. The rest of incisions were reapproximated using 4-0 Monocryl in an interrupted subcuticular fashion. Local anesthetic was infiltrated along the skin for postop analgesia. Liquid glue was applied to the skin. OptiFoam dressing was placed along the EEA stapler site. At the end of the procedure, needle, sponge and instrument count had been verified correct by the nursing surgical services director. He had tolerated the procedure well and was extubated and taken to the postanesthesia unit in stable condition. Intraoperative findings were described to the patient's family who were very pleased with the level of care. Total console time 80 minutes Operative Findings: 1. Biliopancreatic limb 60 cm 2. Bypass performed using 100 cm finesse limb secondary to avoid increased tension at 150 cm. 3. Chavez defect and jejunojejunostomy defect obliterated by moderate intra- abdominal fat. 4. Leak test negative with gastrojejunal anastomosis patent and hemostatic. 5. Reinforcement sutures were placed along the gastrojejunal anastomosis 6. No fatty liver disease with hepatomegaly
[2018-03-13] MEDS: HYDROmorphone 0.5 MG/0.5 ML SYRINGE IVP PRN ×2 (14:49→14:59)
[2018-03-13 15:07] LABS: Glucose,Whole Blood 139 mg/dL (75-99)
[2018-03-13] MEDS ORDERED: ACETAMINOPHEN IV (For NPO) 1,000 MG in EMPTY BAG 1 BAG IVPB ONE (16:00)
[2018-03-13] MEDS: ONDANSETRON 4 MG/2 ML VIAL IVP SCH ×2 (16:37→23:56)
[2018-03-13 16:43] LABS: Glucose,Whole Blood 133 mg/dL (75-99)
[2018-03-13] MEDS: ALBUTEROL NEBULIZED 2.5 MG/3 ML INHALATION SCH ×2 (16:45→20:43)
[2018-03-13] MEDS: LACTATED RINGERS 1,000 ML IV SCH (17:07)
[2018-03-13 17:18] VITALS: BMI 42.5
[2018-03-13] MEDS: HYOSCYAMINE ELIXIR 250 MCG/10 ML BTL PO SCH ×2 (17:32→23:57)
[2018-03-13] MEDS: 0.9% NACL WITH KCL 20 MEQ/L 1,000 ML IV SCH ×2 (17:32→23:56)
[2018-03-13] MEDS: SIMETHICONE 40 MG/0.6 ML DROPS 2,000 MG/30 ML BOTTLE PO SCH ×2 (17:35→23:56)
[2018-03-13] MEDS: PROPRANOLOL 20 MG TAB PO SCH ×2 (17:35→20:51)
[2018-03-13] MEDS: AMPICILLIN-SULBACTAM 3 GM in SODIUM CHLORIDE 0.9% 100 ML IVPB SCH ×2 (17:49→23:56)
[2018-03-13] MEDS ORDERED: HYOSCYAMINE ORAL DROPS 1.875 MG/15 ML BOTTLE PO SCH (18:00)
[2018-03-13] MEDS: HYDROmorphone 1 MG/ML 1 ML SYRINGE IVP PRN ×2 (18:53→22:01)
[2018-03-13 19:51] LABS: Glucose,Whole Blood 97 mg/dL (75-99)
[2018-03-13] MEDS: lamoTRIgine 100 MG TAB PO SCH (20:54)
[2018-03-13] MEDS: HYDROcodone/APAP 15 ML SOLUTION PO PRN (23:58)
[2018-03-14] MEDS: 0.9% NACL WITH KCL 20 MEQ/L 1,000 ML IV SCH ×2 (04:26→05:39)
[2018-03-14] MEDS: HYOSCYAMINE ELIXIR 250 MCG/10 ML BTL PO SCH ×2 (05:36→11:30)
[2018-03-14] MEDS: ONDANSETRON 4 MG/2 ML VIAL IVP SCH ×2 (05:36→11:30)
[2018-03-14] MEDS: SIMETHICONE 40 MG/0.6 ML DROPS 2,000 MG/30 ML BOTTLE PO SCH ×2 (05:37→11:30)
[2018-03-14] MEDS: HYDROcodone/APAP 15 ML SOLUTION PO PRN ×2 (05:37→12:16)
[2018-03-14 06:57] LABS: Glucose,Whole Blood 115 mg/dL (75-99)
[2018-03-14] MEDS ORDERED: 1: MVI, ADULT NO.4 WITH VIT K 10 ML, THIAMINE 100 MG, FOLIC ACID 1 MG, POTASSIUM CHLORID IV SCH ×6 (08:00)
[2018-03-14] MEDS: LACTATED RINGERS 1,000 ML IV SCH (08:03)
[2018-03-14] MEDS: ALBUTEROL NEBULIZED 2.5 MG/3 ML INHALATION SCH ×2 (08:36→11:46)
[2018-03-14] MEDS ORDERED: ENOXAPARIN 40 MG/0.4 ML SYRINGE SQ SCH (09:00)
[2018-03-14] MEDS ORDERED: PANTOPRAZOLE 40 MG/10 ML VIAL IV SCH (09:00)
[2018-03-14 09:02] LABS: Basophils % (A) 0 %; Eosinophils % (A) 0 %; HCT 36.4 % (34.0-46.0); Lymphocytes # (A) 1.7 k/uL (1.0-4.8); Lymphocytes % (A) 16 %; MCH 29.7 pg (25.0-35.0); MCHC 32.9 g/dL (31.0-37.0); MCV 90.1 fL (80.0-100.0); Mean Platelet Volume 7.3; Monocytes # (A) 0.6 k/uL (0-1.0); Monocytes % (A) 6 %; Neutrophils # (A) 8.5 k/uL (1.3-7.7); Neutrophils % (A) 77 %; Platelet Count 246 k/uL (150-450); RBC 4.04 m/uL (3.80-5.40); RDW 13.6 % (11.5-15.5); WBC 11.1 k/uL (3.8-10.6)
[2018-03-14 09:22] LABS: Anion Gap 6 mmol/L; Blood Urea Nitrogen 6 mg/dL (7-17); Calcium 8.9 mg/dL (8.4-10.2); Carbon Dioxide 27 mmol/L (22-30); Chloride 106 mmol/L (98-107); Magnesium 1.7 mg/dL (1.6-2.3); Phosphorus 3.2 mg/dL (2.5-4.5); Potassium 4.5 mmol/L (3.5-5.1); Sodium 139 mmol/L (137-145)
--- NOTE | 2018-03-14 10:10 | P.PN ---
Progress Note - Text Progress Note Date: 03/14/18 Patient seen and evaluated at EMPLOYMENT OFFICE CLERK. Post bariatric discharge instructions reviewed. All questions addressed.
[2018-03-14] MEDS: PROPRANOLOL 20 MG TAB PO SCH (10:47)
[2018-03-14] MEDS: lamoTRIgine 100 MG TAB PO SCH (10:47)
[2018-03-14 12:19] LABS: Glucose,Whole Blood 124 mg/dL (75-99)
--- NOTE | 2018-03-14 14:10 | P.DS ---
Providers Date of admission: 03/13/18 07:55 Expected date of discharge: 03/14/18 Attending physician: Milka Barroso Primary care physician: Stated None - Discharge Diagnosis(es) (1) Osteoarthritis Current Visit: Yes Status: Acute (2) Hypertension Current Visit: Yes Status: Acute (3) Obstructive sleep apnea Current Visit: Yes Status: Acute (4) GERD (gastroesophageal reflux disease) Current Visit: Yes Status: Acute (5) Diabetes mellitus type 2 in obese Current Visit: Yes Status: Acute (6) Depression Current Visit: Yes Status: Acute (7) Bipolar 1 disorder Current Visit: Yes Status: Acute (8) Vitamin D deficiency Current Visit: Yes Status: Acute (9) Iron deficiency anemia Current Visit: Yes Status: Acute (10) Hypertriglyceridemia Current Visit: Yes Status: Acute (11) Hypercholesterolemia Current Visit: Yes Status: Acute (12) Morbid obesity Current Visit: Yes Status: Acute Hospital Course: 32-year-old female who underwent robotic-assisted da Ginger Xi laparoscopic Chela-en-Y gastric bypass by Dr. Barroso on 03/13/2018. Patient doing well postoperatively. She has been up ambulating. Tolerating PO intake. Denies nausea or vomiting. Pain has been tolerable. Vital signs stable. She is stable for discharge home today. Please see EMR for further hospital course and details. Discharge Diagnosis: 1. Morbid obesity, s/p Chela-en-Y gastric bypass 2. Body mass index of 45.3 initial 3. Osteoarthritis of the knees. 4. Osteoarthritis of the hips. 5. Osteoarthritis of the lower back. 6. Obstructive sleep apnea. 7. Hypertensive heart disease. 8. Gastroesophageal reflux disease. 9. Diabetes type 2, [id number]-tvovmihge 10. Seizure disorder 11. Depressive disorder 12. Asthma 13. Bipolar disorder 14. Vitamin D deficiency 15. Iron deficiency anemia 16. Hypertriglyceridemia 17. Hypercholesterolemia Nurse practitioner note has been reviewed by physician. Signing provider agrees with the documented findings, assessment, and plan of care. Patient Condition at Discharge: Stable Plan - Discharge Summary Discharge Rx Participant: Yes New Discharge Prescriptions: New HYDROcodone/APAP [[place] Elixir 7.5-325Mg/15Ml] 30 ml PO Q6HR PRN #360 solution PRN Reason: Severe Pain Bisacodyl [Dulcolax] 5 mg PO DAILY PRN #10 tablet.dr PRN Reason: Constipation Ondansetron Odt [Zofran Odt] 4 mg PO Q8HR PRN #9 tab PRN Reason: Nausea Simethicone 40 mg/0.6 ml Drops [Mylicon Drops] 40 mg PO PCHS PRN #30 ml PRN Reason: Gas Omeprazole 40 mg PO DAILY #30 capsule. Continue lamoTRIgine [LaMICtal] 200 mg PO BID clonazePAM [KlonoPIN] 0.25 mg PO BID Propranolol [Inderal] 20 mg PO TID Mirtazapine [Remeron] 15 mg PO HS QUEtiapine [SEROquel] 50 mg PO BID Norethindrone [Ortho Micronor] 0.35 mg PO DAILY Albuterol Inhaler [Ventolin Hfa Inhaler] 1 - 2 puff INHALATION RT-Q6H PRN PRN Reason: Shortness Of Breath Omeprazole 40 mg PO DAILY #30 capsule. buPROPion HCL [Wellbutrin XL] 300 mg PO DAILY Discontinued metFORMIN HCL [Glucophage] 500 mg PO BID Discharge Medication List Propranolol [Inderal] 20 mg PO TID 09/27/17 [History] clonazePAM [KlonoPIN] 0.25 mg PO BID 09/27/17 [History] lamoTRIgine [LaMICtal] 200 mg PO BID 09/27/17 [History] Albuterol Inhaler [Ventolin Hfa Inhaler] 1 - 2 puff INHALATION RT-Q6H PRN [History] Mirtazapine [Remeron] 15 mg PO HS 11/17/17 [History] Norethindrone [Ortho Micronor] 0.35 mg PO DAILY 11/17/17 [History] QUEtiapine [SEROquel] 50 mg PO BID 11/17/17 [History] Omeprazole 40 mg PO DAILY #30 capsule. 11/21/17 [Rx] buPROPion HCL [Wellbutrin XL] 300 mg PO DAILY 02/02/18 [History] Bisacodyl [Dulcolax] 5 mg PO DAILY PRN #10 tablet. 03/14/18 [Rx] HYDROcodone/APAP [[place] Elixir 7.5-325Mg/15Ml] 30 ml PO Q6HR PRN #360 solution 03/14/18 [Rx] Omeprazole 40 mg PO DAILY #30 capsule. 03/14/18 [Rx] Ondansetron Odt [Zofran Odt] 4 mg PO Q8HR PRN #9 tab 03/14/18 [Rx] Simethicone 40 mg/0.6 ml Drops [Mylicon Drops] 40 mg PO HS PRN #30 ml [Rx] Follow up Appointment(s)/Referral(s): [facility]ariatric Center,. [NON-STAFF] - 03/17/18 10:00 am Patient Instructions/Handouts: How to Use an Incentive Spirometer (DC), Nutrition after Bariatric Surgery (GEN), Chela-en-Y Gastric Bypass (DC) Activity/Diet/Wound Care/Special Instructions: No lifting over 4 pounds in 4 weeks. Follow-up at the bariatric center. Check blood sugars at least twice daily. Hold diabetic medications of blood sugar less than 150. Dressings to be discontinued by surgeon in the office. Start protein shakes this Tuesday. Notify the bariatric center for any questions. Discharge Disposition: HOME SELF-CARE
[2018-03-14 15:40] VITALS: BP 131/85; PULSE 82; RESP 16; TEMP 97.6
== END 2018-03-14 15:41 | disposition home or self-care (01) | DRG 621 ==
LOC: 2ORMAIN 07:55 → 4SSUR 14:32
PROVIDERS: ADMIT Surgery Plastic and Reconstructive Surgery; ATTEND Surgery Plastic and Reconstructive Surgery
PROC: 8E0W4CZ Robotic Assisted Procedure of Trunk Region, Percutaneous Endoscopic Approach (ICD-10-PCS; 2018-03-13)
PROC: 0D164ZA Bypass Stomach to Jejunum, Percutaneous Endoscopic Approach (ICD-10-PCS; principal; 2018-03-13 10:00)
DX: E66.01 Morbid (severe) obesity due to excess calories (principal); D50.9 Iron deficiency anemia, unspecified; E11.9 Type 2 diabetes mellitus without complications; E55.9 Vitamin D deficiency, unspecified; E78.00 Pure hypercholesterolemia, unspecified; E78.1 Pure hyperglyceridemia; F31.9 Bipolar disorder, unspecified; G40.909 Epilepsy, unspecified, not intractable, without status epilepticus; G47.33 Obstructive sleep apnea (adult) (pediatric); I11.9 Hypertensive heart disease without heart failure; J45.909 Unspecified asthma, uncomplicated; K21.9 Gastro-esophageal reflux disease without esophagitis; M16.0 Bilateral primary osteoarthritis of hip; M17.0 Bilateral primary osteoarthritis of knee; M47.9 Spondylosis, unspecified; F41.9 Anxiety disorder, unspecified; Z68.41 Body mass index [BMI] 40.0-44.9, adult; Z87.891 Personal history of nicotine dependence; Z79.84 Long term (current) use of oral hypoglycemic drugs; Z79.899 Other long term (current) drug therapy; Z79.3 Long term (current) use of hormonal contraceptives; Z88.2 Allergy status to sulfonamides; Z90.49 Acquired absence of other specified parts of digestive tract; Z83.3 Family history of diabetes mellitus
CPT/HCPCS: 36415; 80051; 80053; 81025; 82310; 82565; 83735; 84100; 84520; 85025; 86850; 86900; 86901; 93005; 94640; 94760; 94762

== ENCOUNTER → 2018-03-17 | Outpatient (CLI) | payer MEDICARE ==
--- NOTE | 2018-03-17 11:47 | P.PN ---
Subjective Progress Note Date: 03/17/18 DATE OF SERVICE: 03/17/2018 CHIEF COMPLAINT: Status post gastric bypass HISTORY OF PRESENT ILLNESS: Michelle Bentley is a 32-year-old female who is status post gastric bypass 03/13/2018. She is doing well. No reports of nausea or vomiting. She reports appropriate incisional pain at the left upper quadrant. At height of 5 feet 3 inches, her ideal body weight is 140 pounds. Highest weight of 255 pounds. She comes in 239 pounds from 246 pounds, 1 week ago. Her body mass index is reduced from 45.3 to 42.5. She lost 7 pounds from 1 week ago. Total weight loss is 16 pounds. Percent excess weight loss is 14%. PHYSICAL EXAM: VITAL SIGNS: Height 5 foot 3 inches, weight 239 pounds. BMI 42.5 Vital Signs Temp 97.9 F 03/17/18 11:50 Pulse 99 03/17/18 11:50 Resp BP 100/63 03/17/18 11:50 Pulse Ox GENERAL: Well-developed in no acute distress. HEENT: No scleral icterus. Extraocular movements grossly intact. Hears conversational speech. No nasal drainage. NECK: Supple without lymphadenopathy. CHEST: Nonlabored respirations with equal bilateral excursions. CARDIOVASCULAR: Regular rate and regular rhythm. Distal 2+ pulses. ABDOMEN: Dressing removed. No cellulitis or infection. Soft. MUSCULOSKELETAL: No clubbing, cyanosis or edema. Gross strength 5/5 distal lower extremities. NEURO: No focal or lateralizing signs. Cranial nerves 2 through 12 grossly within normal limits. PSYCH: Appropriate affect. Alert and oriented to person, place and time. SKIN: Good skin turgor. Well perfused. ASSESSMENT: 1. Morbid obesity. 2. Body mass index of 45.3 initial to 42.5 3. Osteoarthritis of the knees. 4. Osteoarthritis of the hips. 5. Osteoarthritis of the lower back. 6. Obstructive sleep apnea. 7. Hypertensive heart disease. 8. Gastroesophageal reflux disease. 9. Diabetes type 2, [id number] 10. Seizure disorder 11. Depressive disorder 12. Asthma 13. Bipolar disorder 14. Vitamin D deficiency 15. Iron deficiency anemia 16. Hypertriglyceridemia 17. Hypercholesterolemia 18. Hiatal hernia 19. Status post gastric bypass PLAN: 1. Recommend abdominal abdominal binder for pain. 2. Will need additional pain medicine at this time and narcotic consent form obtained. 3. Nurse visit for next week. 4. Will need check of blood pressure daily and may need to discontinue as she has weight loss.
[2018-03-17 11:55] VITALS: BP 100/63; PULSE 99; TEMP 97.9; BMI 42.3
== END ==
LOC: BARWHC3 10:54
PROVIDERS: ATTEND Surgery Plastic and Reconstructive Surgery
DX: R10.9 Unspecified abdominal pain (principal)
CPT/HCPCS: 99211

== ENCOUNTER → 2018-09-27 | Outpatient (CLI) | payer MEDICARE ==
--- NOTE | 2018-09-27 15:58 | P.PN ---
Subjective Progress Note Date: 09/27/18 DATE OF SERVICE: 09/27/2018 CHIEF COMPLAINT: Morbid obesity HISTORY OF PRESENT ILLNESS: Michelle Bentley is a 33-year-old female status post gastric bypass, 03/13/18. She is 7 months out. She reports trouble with her mental health with her mother's in March 2018. She is smoking and drinking. She has been lost to followup since her surgery for over 7 months. She was in the hospital in June 2018 and last seen her psychiatrist 2 weeks ago. No reports of dysphagia. She comes in with new left upper quadrant abdominal pain. At height of 5 feet 3 inches, her ideal body weight is 140 pounds. She comes in 186 pounds from 246 pounds, 7 months ago. She has lost 54 pounds in 6 monts. Her body mass index is reduced from 44.7 to 32.9. She lost 66 pounds lifetime. Percent excess weight loss is 59%. She is 46 pounds overweight. PAST MEDICAL HISTORY: 1. Morbid obesity due to excess calories 2. Body mass index of 45.3 initial 3. Osteoarthritis of the knees. 4. Osteoarthritis of the hips. 5. Osteoarthritis of the lower back. 6. Obstructive sleep apnea. 7. Hypertensive heart disease. 8. Gastroesophageal reflux disease. 9. Diabetes type 2, [id number] 10. Seizure disorder 11. Depressive disorder 12. Asthma 13. Bipolar disorder PAST SURGICAL HISTORY: 1. Cholecystectomy 2. LEEP 3. Status post gastric bypass HOME MEDICATIONS: Home Medications Medication Instructions Recorded Confirmed Propranolol [Inderal] 10 mg PO TID 09/27/17 09/28/18 clonazePAM [KlonoPIN] 0.5 mg PO BID 09/27/17 09/28/18 Albuterol Inhaler [Ventolin Hfa 1 - 2 puff INHALATION RT-Q6H PRN 11/17/17 09/28/18 Inhaler] Eads Carbonate [Eads 450 mg PO ACHS 10/04/18 10/04/18 Carbonate ER] Paliperidone [Invega] 6 mg PO DAILY 10/04/18 10/04/18 Previous Rx's Medication Instructions Recorded Omeprazole 40 mg PO DAILY #90 capsule. 09/27/18 ALLERGIES: Sulfa SOCIAL HISTORY: Tobacco use. FAMILY HISTORY: No family history of ulcerative colitis disease or Crohn's disease. Family history of morbid obesity. No lupus in the family. No reports of stomach or esophageal cancer. Family history of diabetes type 2. REVIEW OF ORGAN SYSTEMS: CONSTITUTIONAL: At height of 5 feet 3 inches, her ideal body weight is 140 pounds. She comes in 252 pounds. Her body mass index is 44.7. HEENT: Denies any active troubles with vision or hearing. No troubles with swallowing. ENDOCRINE: No diabetes. No hypothyroidism. CARDIOVASCULAR: No reports of palpitations or heart attacks or chest pain. RESPIRATORY: Has daytime somnolence. Has asthma. GI: Denies any bright red blood per rectum. MUSCULOSKELETAL: Has lower back pain and joint pain. Has osteoarthritis of the knees. NEURO: No headaches. No seizure disorders. PSYCH: Has depression and suicidal ideation. Has bipolar disorder. RHEUMATOLOGIC: No lupus. No rheumatoid arthritis. HEMATOLOGIC: Denies any abnormal bleeding or bruising. No personal history of DVTs. SKIN: No rash. No skin cancer. PHYSICAL EXAM: VITAL SIGNS: Height 5 foot 3 inches, weight 186 pounds. BMI 32.9 Vital Signs Temp 98.3 F 09/27/18 16:08 Pulse 71 09/27/18 16:08 Resp BP 101/75 09/27/18 16:08 Pulse Ox GENERAL: Well-developed in no acute distress. HEENT: No scleral icterus. Extraocular movements grossly intact. Hears conversational speech. No nasal drainage. NECK: Supple without lymphadenopathy. CHEST: Nonlabored respirations with equal bilateral excursions. CARDIOVASCULAR: Regular rate and regular rhythm. Distal 2+ pulses. ABDOMEN: Obese, soft, nondistended. Tender at the left upper quadrant. MUSCULOSKELETAL: No clubbing, cyanosis or edema. Gross strength 5/5 distal lower extremities. NEURO: No focal or lateralizing signs. Cranial nerves 2 through 12 grossly within normal limits. PSYCH: Appropriate affect. Alert and oriented to person, place and time. SKIN: Good skin turgor. Well perfused. ASSESSMENT: 1. Morbid obesity. 2. Body mass index of 44.7 initial to 32.9 3. Osteoarthritis of the knees. 4. Osteoarthritis of the hips. 5. Osteoarthritis of the lower back. 6. Obstructive sleep apnea. 7. Hypertensive heart disease. 8. Gastroesophageal reflux disease. 9. Diabetes type 2, [id number] 10. Seizure disorder 11. Depressive disorder 12. Asthma 13. Bipolar disorder 14. Vitamin D deficiency 15. Iron deficiency anemia 16. Hypertriglyceridemia 17. Hypercholesterolemia 18. Hiatal hernia 19. Status post gastric bypass 20. Left upper quadrant abdominal pain PLAN: 1. Recommend Omeprazole 2. Recommend quit smoking 3. Recommend bariatric labs 4. Recommend EGD Objective - Labs CBC & Chem 7: 09/27/18 16:30 09/27/18 16:30
[2018-09-27 16:11] VITALS: BP 101/75; PULSE 71; TEMP 98.3; BMI 32.9
[2018-09-27 16:59] LABS: HCT 39.3 % (34.0-46.0); HGB 13.3 gm/dL (11.4-16.0); MCH 31.8 pg (25.0-35.0); MCHC 33.8 g/dL (31.0-37.0); Mean Platelet Volume 7.3; Platelet Count 331 k/uL (150-450); RBC 4.18 m/uL (3.80-5.40); RDW 12.8 % (11.5-15.5); WBC 10.9 k/uL (3.8-10.6)
[2018-09-27 17:12] LABS: INR 1.1 (<1.2); Partial Thromboplastin Time 24.7 sec (22.0-30.0); Prothrombin Time 11.5 sec (9.0-12.0)
[2018-09-28 00:09] LABS: Iron Saturation 11.2 (12.00-45.00)
[2018-09-28 00:17] LABS: Vitamin D 25 Hydroxy 22.5 ng/mL (30.0-100.0)
[2018-09-28 01:02] LABS: Folate, Serum 18.4 ng/mL
[2018-09-28 01:05] LABS: Chol/HDL Ratio 3.88; LDL Cholesterol,Calculated 95.4 mg/dL (0.0-131.0); Phosphorus 4.2 mg/dL (2.4-5.1); VLDL Calculation 25.6 mg/dL (5.00-40.00)
[2018-09-28 01:06] LABS: African American GFR (CKD) 96.7 (60.0-200.0); Albumin 4.2 g/dL (3.80-4.90); Albumin/Globulin Ratio 1.91 (1.60-3.17); Anion Gap 6.6 mmol/L (4.00-12.00); BUN/Creat Ratio 12.22 Ratio (12.00-20.00); Calcium 9.6 mg/dL (8.7-10.3); Carbon Dioxide 24.4 mmol/L (21.6-31.8); Globulin 2.2 g/dL (1.6-3.3); Potassium 4.4 mmol/L (3.5-5.5); Total Bilirubin 0.3 mg/dL (0.3-1.2); Total Protein 6.4 g/dL (6.2-8.2)
[2018-09-28 01:21] LABS: Hemoglobin A1C 4.8 % (4.0-6.0)
[2018-09-28 14:14] LABS: Zinc, Serum 74 ug/dL (60-130)
[2018-09-29 06:17] LABS: Vitamin A 52 ug/dL (38-106)
[2018-09-29 06:28] LABS: Vit B1(Thiamine) 98 ug/L (38-122)
[2018-09-29 18:44] LABS: Selenium 103 mcg/L (63-160)
== END | disposition home or self-care (01) ==
LOC: BARWHC3 14:44
PROVIDERS: ATTEND Surgery Plastic and Reconstructive Surgery
DX: E66.01 Morbid (severe) obesity due to excess calories (principal); R10.12 Left upper quadrant pain; E61.1 Iron deficiency; E21.1 Secondary hyperparathyroidism, not elsewhere classified; E89.1 Postprocedural hypoinsulinemia; D50.9 Iron deficiency anemia, unspecified; E44.0 Moderate protein-calorie malnutrition; E55.9 Vitamin D deficiency, unspecified; K74.1 Hepatic sclerosis; N19 Unspecified kidney failure; K50.90 Crohn's disease, unspecified, without complications; Z79.899 Other long term (current) drug therapy; Z87.891 Personal history of nicotine dependence
CPT/HCPCS: 84255; 84134; 84425; 80061; 80053; 82607; 82728; 82525; 82746; 83540; 83550; 83735; 84100; 84443; 84590; 84630; 85027; 85610; 85730; 82306; 83970; 83036; G0463; 99211